=== PATIENT | male | born 1940 | race Caucasian/White ===

== ENCOUNTER 2016-06-11 16:19 | Inpatient (IN) | payer BC, MEDICARE ==
[~2016-06-11] VITALS: Ht 172.7 cm; Wt 72.8 kg
--- NOTE | ~2016-06-11 | ECH ---
Transthoracic Echocardiography Report (TTE) Demographics Patient Name LUISA ROSE Date of Study 06/12/2016 Patient Number [id number] Visit Number [id number] Date of 1940 Room Number 305 Accession Number [id number] Gender Male Age 75 year(s) Referring Marquita Anderson Freelance Programmer/App Developer Gloria Ortiz [facility] Physician Physician Interpreting Alex Kwong [employer] Architect Physician Supervising Ordering Physician Marquita Anderson MD/ROSEMARY PATRICK Nurse Stress Spine Specialist Conclusions Contractility Score Summary Normal Left Ventricular contractility was noted. Summary Technically adequate exam. The estimated left ventricular ejection fraction is 55%. Diastolic assessment reveals Grade I diastolic dysfunction. There is trivial aortic regurgitation by color Doppler. Mild mitral regurgitation by color Doppler. Recommendation The patient will be given the results of this study by the physician who ordered the exam. Procedure Type of Study TTE procedure:Echo Complete SF. Procedure Date Date: 06/12/2016 Start: 03:41 PM Technical Quality: Adequate visualization Indications:Hypotension. Appropriate Use Criteria: 9 Height: 68 inches Weight: 156 pounds BSA: 1.84 m Rhythm: Within normal limits HR: 73 bpm BP: 93/64 mmHg M-Mode/2D Measurements LV Diastolic Dimension: 4.64 cm LV Systolic Dimension: 3.13 cm LV Septum Diastolic: 0.92 cm LV PW Diastolic: 0.89 cm AO Root Dimension: 2.93 cm Cardiac Output: 4.28 l/min LA Dimension: 4.05 cm Cardiac Index: 2.33 l/min*m RV Diastolic Dimension: 4.01 cm LA volume index: 28 ml/m LVOT: 2.07 cm LVOT VTI: 17.45 cm RV Base: 3.4 cm LV Stroke volume: 58.7 ml RV Mid: 3 cm LV Stroke volume index: 31.9 ml/m RV Length: 6.6 cm TAPSE: 2 cm TDI-S': 11 cm/s Doppler Measurements AV Peak Velocity: 1.06 m/s MV Peak E-Wave: 0.5 m/s AV Peak Gradient: 4.49 mmHg MV Peak A-Wave: 0.85 m/s AV Mean Gradient: 2.39 mmHg MV E/A Ratio: 0.59 LVOT Peak Velocity: 0.76 m/s MV P1/2t: 72.5 msec AV Area (Continuity):3.06 cm MV Deceleration Time: 227.9 msec TR Velocity:2.36 m/s MV Area (PHT): 3.03 cm TR Gradient:22.26 mmHg Estimated RAP:5 mmHg Estimated PASP: 27.26 mmHg Estimated RVSP: 27 mmHg RA Area: 13.62 cm Findings Left Ventricle The left ventricle is normal in size . Diastolic assessment reveals Grade I diastolic dysfunction. Right Ventricle Normal right ventricle structure and function. Left Atrium Normal left atrial size. Right Atrium Normal right atrial size. Mitral Valve Normal mitral valve structure and function. Mild mitral regurgitation by color Doppler. Aortic Valve The aortic valve is mildly sclerotic. There is trivial aortic regurgitation by color Doppler. Tricuspid Valve Normal appearing tricuspid valve. Mild tricuspid regurgitation by color Doppler. Estimated pulmonary pressures within normal range. Pulmonic Valve The pulmonic valve is not well visualized. Pericardial Effusion No evidence of pericardial effusion. Miscellaneous Visualized portions of the aortic root and ascending aorta appear normal in size. Pleural Effusion No evidence of pleural effusion. Contractility Score LV regional wall motion:(0-Non visualized 1-Normal 2-Hypokinesis 3-Akinesis 4-Dyskinesis 5-Aneurysm) Signature
[2016-06-15] MEDS ORDERED: FLOMAX DPS0.4 MG PO (17:36)
[2016-06-15] MEDS ORDERED: PLAVIX75 MG PO (17:36)
[2016-06-15] MEDS ORDERED: PRILOSEC DPS20 MG PO (17:37)
[2016-06-15] MEDS ORDERED: LEVAQUIN DPS500 MG PO (17:38)
--- NOTE | 2016-06-20 19:47 | ER ---
ADMIT: 06/11/2016 RM/LOC: 423 [facility] MR#: [id number] [address] [address] LUISA ROSE [place] [address] [place] [address] Emergency Room Report SEX: M AGE: 75 : 1940 DATE: 06/11/2016 ADDENDUM: A 75-year-old male, comes in with complaints of just not acting himself. It has been going on since about 9 a.m. this morning. He really has no other complaints and denies any pain. He has had a slight cough for the past day but he was not concerned by this cough. PHYSICAL EXAMINATION: GENERAL: The patient is alert, little slow to answer questions but is appropriate and alert, and does not appear in any distress. It is noted that his initial vital signs show his temperature is 103.8. I did go into sepsis routine on this patient and checked the influence also. Influenza was negative. Chest x-ray shows it could be an early infiltrate in his right base. His CBC was unremarkable. Chemistries were also unremarkable. The patient had lactic acid of 1.2. Influenza was negative. INR is 1.14. EKG shows sinus tachycardia. Otherwise, no acute findings. During our workup, the patient did drop his pressures at one point to 70/40. We began our 30 mL/kg fluid resuscitation at that time and did get some improvement in his blood pressure but I believe he is still somewhat hypotensive and I am concerned for sepsis. He did get IV antibiotics within the 1st 3 hours while he was in the Emergency Department. I spoke to Dr. Juárez who is on for his primary care physician, and will be managing the patient. He was admitted. DIAGNOSES: 1. Pneumonia. 2. Fever. 3. Possible sepsis. Charles Trevino MD/ gene JOB #: [id number] CC: Keri Juárez MD, Attending Physician Sea Medrano MD, Family Physician
--- NOTE | 2016-06-23 08:18 | DS ---
ADMIT: 06/11/2016 RM/LOC: 414 [facility] MR#: [id number] [address] [address] [place] LUISA P [address] [place] [address] General Discharge Summary SEX: M AGE: 75 : 1940 ADMISSION DATE: 06/11/2016 DISCHARGE DATE: 06/14/2016 ADMISSION DIAGNOSIS: Septic shock secondary to suspected respiratory source. DISCHARGE DIAGNOSIS: Viral syndrome. SECONDARY DIAGNOSES: 1. Iron deficiency anemia. 2. Moderate protein-calorie malnutrition. 3. Heme-positive stools. 4. Daily alcohol use. HISTORY OF PRESENT ILLNESS: The patient presented to the emergency room with a 12-hour history of sudden onset generalized weakness, fatigue, and nausea. He reports he was feeling well and he went to bed the night before, but when he awoke, he felt sick to his stomach. He just felt generally weak and unsteady throughout the day and had some mild cognitive changes per his family. He did endorse intermittent cough with some sputum production, but denied chest pain, shortness of breath, melena, peripheral edema, or decreased exercise tolerance. In the emergency room, he was found to be febrile to 103.8, and the majority of his blood pressures had maps less than 65. Blood pressures were difficult to measure as he would intermittently have much higher pressures measured so the readings were difficult to assess for accuracy. HOSPITAL COURSE: After admission, the patient had a much improved fever curve. He did have a fever as high of 101 the first day of admission and then was afebrile after that point. His labs on admission were unremarkable, though he did develop a mild leukopenia with stable hemoglobin and platelet count. Source of the infection was sought with the respiratory viral panel, enteric pathogen panel, C. diff, ova and parasites, blood cultures, urine cultures, as well as urine strep pneumoniae, legionella, all of which were negative. Iron studies were completed, significant for ferritin of 608, iron of 23, TIBC of 150, and saturation of 15. He developed loose stools during the hospitalization, which were negative for the infectious workup as described previously, but were positive on multiple occasions for heme. By hospital day 3, the patient felt much improved and was interested in discharge. He did have an echocardiogram completed with a left ventricular ejection fraction of 55% and grade 1 diastolic dysfunction. Also of note, his albumin was measured at 2.5 during the hospitalization. ADMIT: 06/11/2016 RM/LOC: 414 [facility] MR#: [id number] [address] [address] LUISA ROSE [address] [facility] [address] General Discharge Summary SEX: M AGE: 75 : 1940 MEDICATIONS AT DISCHARGE: 1. Flomax 0.4 mg p.o. daily. 2. Plavix 75 mg p.o. daily. 3. Protonix 40 mg p.o. b.i.d. 4. Levaquin 500 mg p.o. daily for 5 additional days. CONDITION AT DISCHARGE: Stable. DISPOSITION: Discharged to home. Followup scheduled for June 25, with Dr. Juárez. The patient was also recommended to have a colonoscopy as an outpatient due to the heme-positive stools. Yareli Escobar MD Resident / Keri Juárez MD / dadal JOB #: [id number] CC: Keri Juárez MD, Attending Physician Sea Medrano MD, Family Physician
--- NOTE | 2016-06-23 08:18 | HP ---
ADMIT: 06/11/2016 RM/LOC: 305 [facility] MR#: [id number] 2620 [facility] [address] [place] [address] LUISA ROSE [address] [place] [address] History and Physical SEX: M AGE: 75 : 1940 DATE OF SERVICE: CHIEF COMPLAINT: Generalized weakness. HISTORY OF PRESENT ILLNESS: Luisa is a 75-year-old male, who sees Dr. Sea Medrano for his primary care with a past medical history of multiple aneurysm, status post repair, who presented to the ER with 12-hour history of generalized weakness, fatigue, and nausea. He reports he went to bed last night. He was feeling well but when he woke up this morning, he felt sick to his stomach. Throughout the day, he felt generally weak and unsteady and had some mild confusion per his family. He reports he believes he had a normal oral intake and denies any vomiting, diarrhea, or known fevers. He does endorse intermittent cough with some sputum production over the last day. Denies any chest pain, shortness of breath, melena, peripheral edema, or decreased exercise tolerance. In the emergency room, he was found to have fever to 103.8 and after antipyretics and lowering of his temperature, he was noted to have clear mentation. His blood pressures were difficult to assess in the emergency room as they varied greatly from reading to reading with most readings with MAPs less than 65 but intermittent pressures within the normal range. The patient was asymptomatic with the lower readings. He was not hypoxemic and only had very infrequent cough. He denies any known sick contacts but does work in [employer]. He feels much improved after receiving fluid boluses. 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 He also has history of benign prostatic hypertrophy. MEDICATIONS: 1. Plavix. 2. Flomax. ALLERGIES: NO KNOWN MEDICAL ALLERGIES. FAMILY HISTORY: The patient reports that his mother in her 70s from breast cancer and that his dad also in his 70s from ALS. The patient has multiple siblings and he reports that they are healthy. 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 He reports he is a former smoker, having quit in 2011. He does endorse daily alcohol use of 1-2 beers nightly. He denies any illicit drug use. His son is present at the bedside with him. REVIEW OF SYSTEMS: A 10-point review of systems was completed and negative except as noted in the HPI. ADMIT: 06/11/2016 RM/LOC: 305 [facility] MR#: [id number] [address] [address] LUISA ROSE [address] [place] [address] History and Physical SEX: M AGE: 75 : 1940 PHYSICAL EXAMINATION: VITAL SIGNS: Upon presentation 113/69 with MAP of 80, pulse 112, respiratory rate 33, SpO2 of 92%, temperature 103.8. Most recent vitals with heart rate of 90, blood pressure of 102/87. GENERAL: Awake, alert, oriented, in no acute distress. Very pleasant. Mucous membranes dry. HEENT: Head is normocephalic and atraumatic. Pupils are equal, round, and reactive to light. Extraocular muscles are intact. Dentition is in good repair. NECK: Supple. Trachea is midline. Thyroid is not palpable. HEART: Regular rate and rhythm without murmur. No JVD appreciated. LUNGS: Clear to auscultation bilaterally without wheezes, rhonchi, or rales that are decreased slightly in bilateral bases, possibly secondary to effort. ABDOMEN: Soft, nontender to palpation. Bowel sounds are present in all 4 quadrants. EXTREMITIES: Without peripheral edema. NEURO: The patient is awake, alert, oriented, able to provide the entirety of his medical history. Cranial nerves II through XII are intact and he is moving all 4 extremities purposely. Gait is improved after fluid boluses. PSYCH: Normal mood and affect. OBJECTIVE DATA: White blood cell 6.6, hemoglobin 12.7, platelets 292, creatinine 0.9. Sodium 134, CK-MB and troponin negative. Lactic acid 1.2. Procalcitonin 0.47. Albumin 2.5. UA within normal limits. Chest x-ray without lobar pneumonia or effusion and in normal cardiac silhouette, but with some haziness or infiltrate in bilateral bases per my read. EKG sinus tachycardia at 119 beats per minute. ASSESSMENT: 1. Hypotension, fever, and generalized weakness, possibly secondary to septic shock. 2. Moderate protein-calorie malnutrition. 3. Altered mental status. ADMIT: 06/11/2016 RM/LOC: 305 [facility] MR#: [id number] [address] [place] [id number] LUISA ROSE [address] [place] [address] History and Physical SEX: M AGE: 75 : 1940 PLAN: Unclear source of the patient's fever at this time. No respiratory source is suspected as he reports intermittent cough. Blood pressure readings are inconsistent with majority of readings with MAP less than 65 in the emergency room despite 30 mL/kg fluid bolus. However, intermittent readings are within normal limits. The patient with normal mentation is asymptomatic lower readings. He reports on previous hospitalizations for his past surgeries, he has had appropriate blood pressures with probable threshold to place an arterial line for further clarification if needed. At this time, the patient has normal blood pressures and is not requiring any pressors for support. We will repeat chest x-ray in the morning to see if a more clear infiltrate is present. We will also check a respiratory viral panel. The patient currently receiving empiric antibiotics with Levaquin. Yareli Escobar MD Resident / Keri Juárez MD / gene JOB #: [id number] CC: Keri Juárez, Attending Physician Sea Medrano, Family Physician
== END 2016-06-14 14:37 | disposition home or self-care (01) | DRG 866 ==
LOC: ER 16:19 → 4PCU 19:17 → 3ICU 21:10 → 4PCU 06-12 17:32
PROVIDERS: ADMIT Family Medicine
DX: B34.9 Viral infection, unspecified (principal); I95.9 Hypotension, unspecified; E44.0 Moderate protein-calorie malnutrition; D50.9 Iron deficiency anemia, unspecified; R19.5 Other fecal abnormalities; N40.0 Benign prostatic hyperplasia without lower urinary tract symptoms; Z86.79 Personal history of other diseases of the circulatory system; Z87.891 Personal history of nicotine dependence; Z66 Do not resuscitate